=== PATIENT | female | born 1930 | race African-American/Black ===

== ENCOUNTER 2017-10-29 12:03 | Emergency (ER) | payer OTHER ==
[~2017-10-29] VITALS: Ht 162.6 cm; Wt 72.7 kg
[2017-10-29 12:05] VITALS: BP 158/77; PULSE 80; RESP 18; TEMP 97.9; O2SAT 97
--- NOTE | 2017-10-29 13:04 | RADRPT ---
EXAM DATE/TIME: 10/29/2017 12:54 [place] COMPARISON: No previous studies available for comparison. INDICATIONS : Cough and congestion for 2 weeks. MEDICAL HISTORY : None. SURGICAL HISTORY : None. ENCOUNTER: Initial ACUITY: 2 weeks PAIN SCORE: 0/10 LOCATION: Bilateral chest FINDINGS: PA and lateral views of the chest demonstrate the lungs to be symmetrically aerated without evidence of mass, infiltrate or effusion. The cardiomediastinal contours are unremarkable. Osseous structure s are intact. CONCLUSION: No acute disease. There is no evidence of pneumonia. Gregor Monzon MD on October 29, 2017 at 13:02 Board Certified Radiologist. This report was verified electronically.
[2017-10-29] MEDS ORDERED: BENZ100 PO (13:48)
[2017-10-29] MEDS ORDERED: AZIT250T3 PO (13:48)
--- NOTE | 2017-10-29 13:54 | PD ---
HPI Chief Complaint: Cold / Flu Symptoms Time Seen by Provider: 13:29 Travel History International Travel<30 days: No Contact w/Intl Traveler<30days: No Traveled to known affect area: No History of Present Illness HPI 86-year-old female with no significant past medical history presents for evaluation of cough, congestion. She reports that symptoms started 2 weeks ago after she went outside and it was raining. She reports cough with productive yellow sputum production, nasal congestion, unrelieved with Mucinex. Symptoms have persisted which prompted evaluation. She denies fevers, chills, sore throat. No sick contacts. Denies recent travel, rash. She has no primary care physician. No other complaints at this time. PFS Past Medical History Arthritis: Yes Diminished Hearing: No Influenza Vaccination: No ?: Not Menopausal: No Past Surgical History Abdominal Surgery: Yes (COLON RESECTION) Social History Alcohol Use: No Tobacco Use: No Substance Use: No Allergies-Medications (Allergen,Severity, Reaction): Coded Allergies: No Known Allergies (Unverified , 10/29/17) Reported Meds & Prescriptions Reported Meds & Active Scripts Active Tessalon Perles (Benzonatate) 100 Mg Cap 100 Mg PO TID PRN Azithromycin 250 Mg Tab 250 Mg PO DIRECTED Take 2 tabs (500 mg) on day 1 then 1 tab daily x 4 days. Review of Systems Except as stated in HPI: all other systems reviewed are Neg Physical Exam Narrative GENERAL: Well-developed well-nourished female in no acute distress. SKIN: Warm and dry. HEAD: Atraumatic. Normocephalic. EYES: Pupils equal and round. No scleral icterus. No injection or drainage. ENT: No nasal bleeding or discharge. Mucous membranes pink and moist. No oral pharyngeal erythema or exudate. Tympanic membranes appear normal bilaterally. NECK: Trachea midline. No JVD. No lymphadenopathy. CARDIOVASCULAR: Regular rate and rhythm. No murmur appreciated. RESPIRATORY: No accessory muscle use. Clear to auscultation. Breath sounds equal bilaterally. No crackles no wheezing or rhonchi. GASTROINTESTINAL: Abdomen soft, non-tender, nondistended. Hepatic and splenic margins not palpable. MUSCULOSKELETAL: No obvious deformities. No clubbing. No cyanosis. No edema. NEUROLOGICAL: Awake and alert. No obvious cranial nerve deficits. Motor grossly within normal limits. Normal speech. PSYCHIATRIC: Appropriate mood and affect; insight and judgment normal. Data Data Last Documented VS Vital Signs Date Time Temp Pulse Resp B/P (MAP) Pulse Ox O2 Delivery O2 Flow Rate FiO2 10/29/17 13:27 Room Air 10/29/17 12:05 97.9 80 18 158/77 (104) 97 Orders Orders Chest, Pa & Lat (10/29/17 ) Ed Discharge Order (10/29/17 13:51) MDM Medical Decision Making Medical Screen Exam Complete: Yes Emergency Medical Condition: Yes Medical Record Reviewed: Yes Differential Diagnosis Pneumonia, bronchitis, sinusitis, rhinitis, influenza Narrative Course This is an 86-year-old female who is had persistent productive cough and nasal congestion for 2 weeks. She appears well. Her lungs are clear to auscultation. The chest x-ray was obtained in triage which reveals no evidence of pneumonia. Given the duration of symptoms, age, the patient will be started on azithromycin. She will be given a prescription for Tessalon. Recommended establishing care with a primary care physician for routine health maintenance. She understands to return here for any acutely new or worsening symptoms. She is stable for discharge. Diagnosis Primary Impression: Bronchitis Additional Instructions: Medication as prescribed. Stay well hydrated well-nourished. Follow-up with primary care physician and return for any acutely new or worsening symptoms. Med/Other Pt SpecificInfo: Prescription(s) given Scripts Benzonatate (Tessalon Perles) 100 Mg Cap 100 MG PO TID Y for COUGH, #20 CAP 0 Refills Prov: Melita Tsang MD 10/29/17 Azithromycin (Azithromycin) 250 Mg Tab 250 MG PO DIRECTED for Infection, #6 TAB 0 Refills Take 2 tabs (500 mg) on day 1 then 1 tab daily x 4 days. Prov: Melita Tsang MD 10/29/17 Disposition: 01 DISCHARGE HOME Condition: Stable Milton Cody Oct 29, 2017 13:54
[2017-10-29 13:56] VITALS: BP 146/72
== END 2017-10-29 14:41 | disposition home or self-care (01) ==
LOC: NEPD 12:03
DX: J40 Bronchitis, not specified as acute or chronic (principal)
CPT/HCPCS: 71046; 99284